=== PATIENT | male | born 1995 | race Caucasian/White ===

== ENCOUNTER 2017-10-01 01:34 | Emergency (ER) | payer BC ==
[2017-10-01] MEDS: HYDROCODONE/APAP (10/325) TAB PO (05:29)
[2017-10-01] MEDS: KETOROLAC 15 MG INJ IM ×2 (05:30→07:30)
== END 2017-10-01 07:31 | disposition home or self-care (01) ==
LOC: FTE 01:34
DX: J18.1 Lobar pneumonia, unspecified organism (principal); F17.210 Nicotine dependence, cigarettes, uncomplicated
CPT/HCPCS: 71046; 96372; 99284-25

== ENCOUNTER 2017-11-07 07:20 | Emergency (ER) | payer BC ==
[2017-11-07] MEDS: NAPROXEN 500 MG TAB PO (08:02)
== END 2017-11-07 09:13 | disposition home or self-care (01) ==
LOC: FTE 07:20
DX: M25.571 Pain in right ankle and joints of right foot (principal); M25.572 Pain in left ankle and joints of left foot; F17.210 Nicotine dependence, cigarettes, uncomplicated
CPT/HCPCS: 73650; 73650-LT; 99284-25

== ENCOUNTER 2018-02-08 19:27 | Emergency (ER) | payer BC ==
[2018-02-08] MEDS: SOD CHLORIDE 0.9% 1,000 ML IV (20:35)
[2018-02-08] MEDS: LORAZEPAM 2 MG INJ IV (20:37)
[2018-02-08 20:44] LABS: ADD MAN DIFF? NO
[2018-02-08 20:47] LABS: BASOPHIL # 0.1 10^3/ul (0.0-0.1); BASOPHILS % 0.5 % (0.0-2.0); EOSINOPHILS # 0.1 10^3/ul (0.0-0.5); EOSINOPHILS % 1.4 % (0.0-7.0); HEMATOCRIT 43.2 % (42.0-52.0); HEMOGLOBIN 14.6 g/dl (14.0-18.0); LYMPHOCYTES # 2.4 10^3/ul (0.8-2.9); LYMPHOCYTES % 24.9 % (18.0-55.0); MEAN CORPUSCULAR HEMOGLOBIN 31.3 pg (29.0-33.0); MEAN CORPUSCULAR HGB CONC 33.8 g/dl (32.0-37.0); MEAN CORPUSCULAR VOLUME 92.5 fl (72.0-104.0); MEAN PLATELET VOLUME 12.7 fl (7.4-10.4); MONOCYTE # 0.7 10^3/ul (0.3-0.9); MONOCYTES % 7.1 % (0.0-13.0); NEUTROPHIL # 6.5 10^3/ul (1.6-7.5); NEUTROPHILS % 65.9 % (30.0-74.0); PLATELET COUNT 161 10^3/UL (140-415); RED BLOOD COUNT 4.67 10^6/ul (4.70-6.10); RED CELL DISTRIBUTION WIDTH 11.2 % (11.5-14.5)
[2018-02-08 20:47] LABS: WHITE BLOOD COUNT 9.8 10^3/ul (4.8-10.8)
[2018-02-08 21:58] LABS: ANION GAP 15 (8-16); BLOOD UREA NITROGEN 24 mg/dl (7-20); CALCIUM 9.4 mg/dl (8.4-10.2); CARBON DIOXIDE 28 mmol/L (21-31); CHLORIDE 103 mmol/L (97-110); CREATININE 1.37 mg/dl (0.61-1.24); GLUCOSE 70 mg/dl (70-220); POTASSIUM 3.9 mmol/L (3.5-5.1); SODIUM 142 mmol/L (135-144)
[2018-02-08 22:09] LABS: TROPONIN-I < 0.012 ng/ml (0.000-0.120)
[2018-02-08] MEDS: KETOROLAC 30 MG INJ IV (22:20)
== END 2018-02-08 22:53 | disposition home or self-care (01) ==
LOC: FTE 19:27
DX: R07.9 Chest pain, unspecified (principal); R55 Syncope and collapse; Z87.891 Personal history of nicotine dependence
CPT/HCPCS: 36415; 70450; 71045; 80048; 82962; 84484; 85025; 93005; 96374; 96375; 99285-25

== ENCOUNTER 2018-10-29 00:02 | Emergency (ER) | payer BC ==
[2018-10-29] MEDS: SOD CHLORIDE 0.9% 1,000 ML IV (00:37)
[2018-10-29] MEDS: LORAZEPAM 2 MG INJ IV (00:37)
== END 2018-10-29 02:46 | disposition home or self-care (01) ==
LOC: E/R 00:02
DX: F14.10 Cocaine abuse, uncomplicated (principal); F10.10 Alcohol abuse, uncomplicated; F11.10 Opioid abuse, uncomplicated; Z87.891 Personal history of nicotine dependence
CPT/HCPCS: 96374; 99284-25